=== PATIENT | female | born 1980 | race Caucasian/White ===

== ENCOUNTER 2017-10-09 06:14 | Day surgery (SDC) | payer OTHER ==
[2017-10-08 10:54] VITALS: BMI 39.6
[2017-10-09] MEDS ORDERED: ACETAMINOPHEN INJECTION 100 ML IVPB ONE (07:16)
[2017-10-09] MEDS ORDERED: LIDOCAINE HCL/PF 2% SDV 5ML VIAL ONE (07:31)
[2017-10-09] MEDS ORDERED: DEXAMETHASONE SOD PHOSPHATE 4 MG/1 ML VIAL ONE ×3 (07:31→12:07)
[2017-10-09] MEDS ORDERED: SUCCINYLCHOLINE CHLORIDE 200 MG/10 ML VIAL ONE (07:32)
[2017-10-09] MEDS ORDERED: PROPOFOL 20 ML ONE ×2 (07:32)
[2017-10-09] MEDS ORDERED: ROCURONIUM BROMIDE 50 MG/5 ML VIAL ONE (07:32)
[2017-10-09] MEDS ORDERED: MIDAZOLAM HCL 2 MG/2 ML SINGLE DOSE VIAL ONE ×2 (07:32)
[2017-10-09] MEDS ORDERED: SCOPOLAMINE HYDROBROMIDE 1 PATCH PATCH.TD72 ONE (07:46)
[2017-10-09] MEDS ORDERED: LIDOCAINE 1%/EPI 1:100000 (20 ML MULTI DOSE VIAL) ONE (07:48)
[2017-10-09] MEDS ORDERED: BACITRACIN 15 GM TUBE TOPICAL OINTMENT ONE (07:48)
[2017-10-09] MEDS ORDERED: COCAINE HCL 4% TOPICAL SOLUTION 4 ML BOTTLE TP ONE ×2 (08:06→08:47)
--- NOTE | 2017-10-09 08:10 | HP ---
Admitting History and Physical - Admission Chief Complaint: Repeated sinusitis, nasal congestion, nasal polyps History of Present Illness: Repeated sinus problems, sinusitis and nasal polyps Limitations to Obtaining History: No Limitations - Past Medical History ...LMP: 09/25/17 ...: No - Smoking History Smoking history: Never smoked Have you smoked in the past 12 months: No - Alcohol/Substance Use Hx Alcohol Use: No Home Medications - Allergies Allergies/Adverse Reactions: Allergies Allergy/AdvReac Type Severity Reaction Status Date / Time No Known Drug Allergies Allergy Verified 10/09/17 07:02 - Home Medications Home Medications: Ambulatory Orders Multivit with Iron,Minerals [Compete] 1 each PO DAILY 10/08/17 Physical Examination Vital Signs: Vital Signs Temperature 98.4 F 10/09/17 07:01 Pulse Rate 93 H 10/09/17 07:01 Respiratory Rate 20 10/09/17 07:01 Blood Pressure 142/98 10/09/17 07:01 O2 Sat by Pulse Oximetry (%) 98 10/09/17 06:55 Constitutional: Yes: Well Nourished, No Distress, Calm Eyes: Yes: WNL, Conjunctiva Clear HENT: Yes: WNL, Atraumatic, Other (turbinate hypertrophy, deviated septuim) Neck: Yes: WNL, Supple Cardiovascular: Yes: WNL, Regular Rate and Rhythm Respiratory: Yes: WNL, Regular Gastrointestinal: Yes: WNL Musculoskeletal: Yes: WNL Extremities: Yes: WNL Neurological: Yes: WNL, Alert, Oriented Psychiatric: Yes: WNL Problem List - Problems (1) Chronic sinusitis Assessment/Plan: Surgical opening of sinuses and improvement of airway, by removing polyps and turbinate reduction Code(s): J32.9 - CHRONIC SINUSITIS, UNSPECIFIED Qualifiers: Sinusitis location: unspecified location Qualified Code(s): J32.9 - Chronic sinusitis, unspecified
[2017-10-09] MEDS ORDERED: CEFOXITIN SODIUM 1 GM IVPB ONE (08:42)
[2017-10-09] MEDS ORDERED: LIDOCAINE 1%/EPI 1:100000 (50 ML MULTI DOSE VIAL) INF ONE (08:47)
[2017-10-09] MEDS ORDERED: ceFAZolin SODIUM 1 GM VIAL IVPB ONE (08:47)
[2017-10-09] MEDS ORDERED: GLYCOPYRROLATE 0.2 MG/1 ML VIAL ONE (09:11)
[2017-10-09] MEDS ORDERED: NEOSTIGMINE METHYLSULFATE 0.5 MG/ML - 10 ML MDV ONE (09:12)
[2017-10-09] MEDS ORDERED: BACITRACIN 15 GM TUBE TOPICAL OINTMENT TP ONE (09:37)
[2017-10-09] MEDS ORDERED: PROMETHAZINE HCL 25 MG/1 ML VIAL IVPUSH PRN (09:56)
[2017-10-09] MEDS ORDERED: ONDANSETRON 4 MG/2 ML VIAL IVPUSH PRN (09:56)
[2017-10-09] MEDS ORDERED: oxyCODONE HCL 5 MG TABLET PO PRN (09:56)
[2017-10-09] MEDS ORDERED: LACTATED RINGERS SOLUTION 1,000 ML IV SCH (10:00)
[2017-10-09] MEDS ORDERED: DEXAMETHASONE SOD PHOSPHATE 4 MG/1 ML VIAL IVPUSH ONE (12:00)
[2017-10-09 17:19] VITALS: BP 120/70; PULSE 70; TEMP 97.8
--- NOTE | 2017-10-10 14:53 | PATH ---
Surgical Pathology Report Patient Name: KATE NIELSEN [facility]. Rec. #: [id number] /Age/Gender: 1980 (Age: 37) / F Account: [id number] Location: [facility] Taken: 10/09/2017 Received: 10/09/2017 Reported: 10/10/2017 Physicians: Wayne Sanz M.D. Specimen(s) Received NASAL POLYP Clinical History Deviated septum, hypertrophy nasal turbinates, chronic sinusitis, nasal polyp Final Diagnosis NASAL POLYP, RIGHT, BILATERAL MAXILLARY ANTROSTOMY WITH TISSUE REMOVAL: NASAL (INFLAMMATORY) POLYP. Electronically Signed Chelsea Borrero M.D. Gross Description Received in formalin labeled "right nasal polyp," is a 1.2 x 0.9 x 0.2 cm dodd, polypoid portion of soft tissue. The specimen is submitted in toto in one cassette. 10/09/201710/09/2017
--- NOTE | 2017-11-08 16:21 | OP ---
DATE OF OPERATION: 10/09/2017 PREOPERATIVE DIAGNOSES: Nasal polyposis, deviated septum, turbinate hypertrophy, chronic sinusitis. POSTOPERATIVE DIAGNOSES: Nasal polyposis, deviated septum, turbinate hypertrophy, chronic sinusitis. SURGEON: Wayne Sanz MD ANESTHESIA: General. INDICATIONS: This is a 37-year-old woman with a history of sinusitis with nasal polyps refractory to repeated medication, chronic nasal congestion, sinus pressure. Risks and benefits were discussed in the office and in the surgical waiting area. All questions were answered. PROCEDURE: Bilateral sinus surgery and endoscopic ethmoidectomy, bilateral turbinate outfracture and cautery, right maxillary antrostomy, left maxillary antrostomy with tissue removal, and sinus navigation. DESCRIPTION OF PROCEDURE: Patient was brought to the operating room and placed under general anesthesia. After the patient was placed under anesthesia, a [employer] navigation tracker was placed. Patient was prepped and draped. Her nose was decongested with cocaine 4% cottonoid, then injected with 1% lidocaine with 1:100,000 of epinephrine. Her nasal exam was performed with a 0-degree endoscope. Deviated septum was noted to the right side, partially obstructing the middle meatus, but after decongesting, access to the middle meatus was adequate. There were polyps, larger on the right side than the left side, emanating from the middle meatus and the middle turbinates. The right side was first operated on by using a straight [employer] shaver which was guided. I removed polypoid tissue from off the middle turbinate, and there was a larger polyp that was removed using Blakesley-Darien forceps. That was sent separately to pathology. The middle meatus was anterior, and polypoid tissue was removed. The middle turbinate was medialized. The anterior ethmoidectomy was performed by entering the bullae with straight suction, then exonerate the anterior ethmoid with the microdebrider. The uncinate was pulled forward with a seeker, and the ostia were cannulated and dilated with 2 dilatations with the maxillary balloon. The nose then was packed with the cottonoids that had the 4% cocaine. At that point, the left side was operated on with the navigation microdebrider. The polypoid tissue was removed from the middle turbinate, and the medial turbinate was medialized. The uncinate was removed using a [place] elevator, and then, the anterior ethmoidectomy was performed with the microdebrider down to the ground lamella as on the right side. The ostia were widened using a curved microdebrider blade, and material from the maxillary sinus was removed using the curved microdebrider blade, also with navigation. Then, cottonoids were placed back into the ethmoid cavity, and then both inferior turbinates were outfractured with a long nasal speculum and Elmed bipolar cautery was used first on the right side with 3 separate passes, and then, on the left side, the inferior turbinate was also cauterized with 3 separate passes. Bacitracin was placed onto the inferior turbinates. Nasopore packing with bacitracin was placed into both of the middle meatuses. Then, patient was extubated in the operating room, brought to recovery room in stable condition. Rafael [id number]
== END 2017-10-09 14:00 | disposition home or self-care (01) ==
LOC: JASU-SURG 06:14
PROVIDERS: ATTEND Otolaryngology
PROC: 09TU8ZZ Resection of Right Ethmoid Sinus, Via Natural or Artificial Opening Endoscopic (ICD-10-PCS; 2017-10-09)
PROC: 8E09XBZ Computer Assisted Procedure of Head and Neck Region (ICD-10-PCS; 2017-10-09)
PROC: 099R8ZZ Drainage of Left Maxillary Sinus, Via Natural or Artificial Opening Endoscopic (ICD-10-PCS; 2017-10-09)
PROC: 099Q8ZZ Drainage of Right Maxillary Sinus, Via Natural or Artificial Opening Endoscopic (ICD-10-PCS; 2017-10-09)
PROC: 8E09XBZ Computer Assisted Procedure of Head and Neck Region (ICD-10-PCS; 2017-10-09)
PROC: 09SL8ZZ Reposition Nasal Turbinate, Via Natural or Artificial Opening Endoscopic (ICD-10-PCS; 2017-10-09)
PROC: 09TV8ZZ Resection of Left Ethmoid Sinus, Via Natural or Artificial Opening Endoscopic (ICD-10-PCS; principal; 2017-10-09 08:00)
DX: J33.8 Other polyp of sinus (principal); J34.2 Deviated nasal septum; J34.3 Hypertrophy of nasal turbinates; J32.8 Other chronic sinusitis
CPT/HCPCS: 84703; 88304-TC; 94760; J0131